=== PATIENT | male | born 1955 | race Caucasian/White ===

== ENCOUNTER 2024-06-23 14:27 | Inpatient (IN) | payer OTHER ==
[~2024-06-23] VITALS: Ht 193 cm; Wt 133.0 kg
[~2024-06-23 14:27] MED LIST: BENAML10/40 PO; HYDACE5 PO; IRBHYD150 PO; NAPR500 PO
[2024-06-23 14:59] LABS: Hematocrit 20.7 % (37.0-53.0); Hemoglobin 7.6 g/dL (13.5-17.5); Mean Corpuscular HGB 39.4 pg (26.0-34.0); Mean Corpuscular HGB Conc 36.7 g/dL (31.5-36.5); Mean Corpuscular Volume 107 fL (80-100); RDW Coefficient Variation 13.1 % (11.7-14.2); RDW Standard Deviation 50.1 fL (35.1-46.3); Red Blood Cell Count 1.93 M/mm3 (4.30-5.90)
[2024-06-23 15:15] LABS: BASOPHILS PERCENT AUTO 0 % (0-2); EOSINOPHILS ABSOLUTE AUTO 0.01 K/mm3 (0.00-0.68); EOSINOPHILS PERCENT AUTO 1 % (0-6); IMMATURE GRAN ABSOLUTE AUTO 0.02 K/mm3 (0.00-0.10); IMMATURE GRAN PERCENT AUTO 2 % (0-1); LYMPHOCYTES ABSOLUTE AUTO 0.66 K/mm3 (0.84-5.20); LYMPHOCYTES PERCENT AUTO 66 % (21-46); MONOCYTES ABSOLUTE AUTO 0.11 K/mm3 (0.16-1.47); MONOCYTES PERCENT AUTO 11 % (4-13); NEUTROPHILS PERCENT AUTO 20 % (41-73)
[2024-06-23] MEDS ORDERED: NS 1,000 ML IV SCH ×3 (15:15→21:10)
[2024-06-23] MEDS ORDERED: Cefepime HCl 2,000 MG in NS 100 ML IV ONE (15:25)
[2024-06-23 15:32] LABS: Mean Platelet Volume 9.8 fL (9.1-12.4); Platelet Count 62 K/mm3 (150-400)
[2024-06-23 15:36] LABS: Albumin, Blood 2.9 g/dL (3.4-5.0); Albumin/Globulin Ratio 0.8 (0.8-1.8); Bun/Creatinine Ratio 21.3 (12.0-20.0); Calcium, Blood 8.9 mg/dL (8.5-10.1); Creatinine, Blood 1.64 mg/dL (0.60-1.20); Globulin, Blood 3.8 g/dL (2.2-4.0); Potassium, Blood 3.3 mmol/L (3.5-5.5); Total Protein, Blood 6.7 g/dL (6.4-8.2)
[2024-06-23 16:22] LABS: Influenza A, PCR NEGATIVE (NEGATIVE); Influenza B, PCR NEGATIVE (NEGATIVE); Resp Syncytial Virus, PCR NEGATIVE (NEGATIVE); SARS-Cov-2 (COVID-19) PCR, MMC NEGATIVE (NEGATIVE)
[2024-06-23] MEDS ORDERED: Acetaminophen 500 MG Tab PO ONE (16:25)
[2024-06-23] MEDS ORDERED: Ondansetron HCl 2 MG / ML 2ML Vial IV PRN (21:10)
[2024-06-23 21:32] LABS: Source, Urine Clean Catch
[2024-06-23] MEDS ORDERED: Azithromycin 500 MG in NS 250 ML IV SCH (21:36)
[2024-06-23 21:38] LABS: Bilirubin, Urine Neg (Neg); Blood, Urine 1+ (Neg); Glucose Qualitative, Urine Neg (Neg); Ketones, Urine Neg (Neg); Leukocyte Esterase, Urine Neg (Neg); Nitrite, Urine Neg (Neg); Protein, Urine 2+ (Neg); Urobilinogen, Urine 1+ (Normal)
[2024-06-23] MEDS ORDERED: EPINEPhrine HCl 0.1 MG/ML STE Water 10ML SYR XX ONE (21:47)
[2024-06-23] MEDS ORDERED: Lidocaine HCl 2% 20 MG/ML 5ML SYR IV ONE (21:47)
[2024-06-23] MEDS ORDERED: Sodium Bicarb 8.4% 1 MEQ/ML 50 ML Vial IV ONE (21:47)
[2024-06-23] MEDS ORDERED: Calcium Chloride 10% 10 ML SYR IV ONE (21:47)
[2024-06-23] MEDS ORDERED: Amiodarone HCl 50 MG / ML 3 ML Amp IV ONE (21:47)
[2024-06-23] MEDS ORDERED: Magnesium Sulfate 500 MG / ML 2ML Vial XX ONE (21:47)
[2024-06-23 21:52] LABS: Appearance, Urine Hazy (Clear); Color, Urine Yellow (P-Yellow)
[2024-06-23 21:53] LABS: Amorphous Light (0-Heavy); Bacteria Few /hpf; Red Blood Cells, Urine 0-2 /hpf (0-2); Squamous Epithelial Cells Mod /hpf (Few); White Blood Cells, Urine 0-2 /hpf (0-5)
[2024-06-23 21:54] LABS: Granular Casts 0-2 /lpf (0); Hyaline Casts 0-2 /lpf (0-2)
[2024-06-23] MEDS ORDERED: Potassium Chloride 20 MEQ TabCR PO ONE (22:00)
[2024-06-23] MEDS ORDERED: LORazepam 2 MG/ML 1ML Injection IV ONE (22:28)
[2024-06-23] MEDS ORDERED: Propofol 10mg/ml 20 ml Vial (Procedural) IV ONE (22:28)
[2024-06-24] VITALS (34 sets, daily range): BP systolic 66–137; BP diastolic 44–74
[2024-06-24] MEDS ORDERED: Cefepime HCl 2,000 MG in NS 100 ML IV SCH
[2024-06-24] MEDS ORDERED: DOXA4 PO (02:05)
[2024-06-24] MEDS ORDERED: HYDCHL50 PO (02:06)
[2024-06-24] MEDS ORDERED: AMLO10 PO (02:10)
[2024-06-24] MEDS ORDERED: BENAZEPRIL HCL40 M1 PO (02:11)
[2024-06-24] MEDS ORDERED: VERAPAMIL ER120 M1 PO (03:29)
[2024-06-24] MEDS ORDERED: Acetaminophen 325 MG TABLET PO PRN (03:50)
--- NOTE | 2024-06-24 03:50 | NUR ---
DURING AM VS PT HAD ORAL TEMP OF 101.3F, HOSPITALIST NOTIFIED AND ORDER FOR TYLENOL 650MG Q6H PRN OBTAINED.
[2024-06-24] MEDS ORDERED: LIDO5TO TOP (04:11)
[2024-06-24] MEDS ORDERED: Viagra100 MG PO (04:12)
[2024-06-24] MEDS ORDERED: Acetaminophen 500 MG Tab PO ONE (05:55)
[2024-06-24 08:32] LABS: Hematocrit 18.3 % (37.0-53.0); Hemoglobin 6.6 g/dL (13.5-17.5); Mean Corpuscular HGB 39.3 pg (26.0-34.0); Mean Corpuscular HGB Conc 36.1 g/dL (31.5-36.5); Mean Corpuscular Volume 109 fL (80-100); Mean Platelet Volume 9.6 fL (9.1-12.4); RDW Coefficient Variation 13.3 % (11.7-14.2); RDW Standard Deviation 52.6 fL (35.1-46.3); Red Blood Cell Count 1.68 M/mm3 (4.30-5.90); White Blood Cell Count 1.35 K/mm3 (4.00-11.30)
[2024-06-24 08:34] LABS: Platelet Count 50 K/mm3 (150-400)
[2024-06-24] MEDS ORDERED: Enoxaparin 40 MG/0.4 ML SYR SC SCH (09:00)
[2024-06-24 09:21] LABS: BAND PERCENT MAN 2 % (0-8); BASOPHILS PERCENT MAN 0 % (0-2); EOSINOPHILS PERCENT MAN 0 % (0-6); LYMPHOCYTES ABSOLUTE MAN 0.91 K/mm3 (0.84-5.20); LYMPHOCYTES PERCENT MAN 68 % (21-46); MONOCYTES ABSOLUTE MAN 0.05 K/mm3 (0.16-1.47); MONOCYTES PERCENT MAN 4 % (4-13); NEUTROPHILS ABSOLUTE MAN 0.29 K/mm3 (1.96-9.15); OTHER CELL PERCENT MAN 2 % (0-0); PROMYELOCYTE ABSOLUTE MAN 0.05 K/mm3 (0.00-0.00); PROMYELOCYTE PERCENT MAN 4 % (0-0); SEG NEUTROPHILS PERCENT MAN 20 % (41-73); TOTAL CELLS COUNTED 50
[2024-06-24] MEDS ORDERED: Folic Acid 1 MG in NS 50 ML IV SCH (10:32)
[2024-06-24] MEDS ORDERED: NS 1,000 ML BAG IR SCH (11:00)
[2024-06-24] MEDS ORDERED: NS 500 ML IV SCH (11:15)
--- NOTE | 2024-06-24 16:16 | NUR ---
Upon receiving a referral for spiritual care, I visited the patient. He is lying in bed and alert. He tells me about the events that led to his admission to the hospital. He tells me that the initial trauma of the event caused him to lose hope for a bit but that he was feeling much more positive today. We talked about the people an resources that help stabilize him and about the great clinical staff that have supported him through the challenges of this medical issue. I provided therapeutic listening, anxiety containment, and a calming presence. Patient responded well and showed signs of reduced stress. I will continue to remain available to patient and family.
--- NOTE | 2024-06-24 16:21 | NUR ---
PT GOT I UNIT OF PRBC. WAITING ON RESULTS FROM LAB TO SEE NEW HGB. PT HAD NO C/O PIN, SOB. GETS AROUND WITH STBYA/GB/W. PT HAS NO QUESTIONS OR COCNERNS AT THIS TIME
[2024-06-24 16:53] LABS: Adenovirus F 40/41 Not Detected (NOT DETECT); Astrovirus Not Detected (NOT DETECT); Campylobacter Sp Not Detected (NOT DETECT); Cryptosporidium Not Detected (NOT DETECT); Cyclospora Cayetanensis Not Detected (NOT DETECT); E. Coli O157 Not Detected (NOT DETECT); Entamoeba Histolytica Not Detected (NOT DETECT); Enteroaggregative E. coli-EAEC Not Detected (NOT DETECT); Enteropathogenic E. coli-EPEC Not Detected (NOT DETECT); Enterotoxigenic E. coli-ETEC Not Detected (NOT DETECT); Giardia Lamblia Not Detected (NOT DETECT); Norovirus GI/GII Not Detected (NOT DETECT); Plesiomonas Shigelloides Not Detected (NOT DETECT); Rotavirus A Not Detected (NOT DETECT); Salmonella Sp Not Detected (NOT DETECT); Sapovirus Not Detected (NOT DETECT); Shiga Toxin-prod E. coli-STEC Not Detected (NOT DETECT); Shigella/Enteroin E. coli-EIEC Not Detected (NOT DETECT); Vibrio Cholerae Not Detected (NOT DETECT); Vibrio Sp Not Detected (NOT DETECT); Yersinia Enterocolitica Not Detected (NOT DETECT)
[2024-06-24 17:04] LABS: Base Excess Venous -7.1 mmol/L; PCO2 Venous 46.7 mmHg (38-42); pH Blood Venous 7.24 (7.34-7.37)
[2024-06-24] MEDS ORDERED: propofoL 100 ML IV ONE (17:21)
[2024-06-24] MEDS ORDERED: Cetylpyridinium Chloride 1 EA MISC MT SCH (17:35)
[2024-06-24] MEDS ORDERED: propofoL 100 ML IV SCH (17:35)
[2024-06-24 17:41] LABS: Hematocrit 21.6 % (37.0-53.0); Hemoglobin 7.5 g/dL (13.5-17.5); Mean Corpuscular HGB 38.3 pg (26.0-34.0); Mean Corpuscular HGB Conc 34.7 g/dL (31.5-36.5); Mean Corpuscular Volume 110 fL (80-100); Mean Platelet Volume 10.6 fL (9.1-12.4); NRBC ABSOLUTE 0.09 K/mm3 (0.00-0.02); NRBC Auto 1.3 /100 WBC (0.0-0.2); Platelet Count 51 K/mm3 (150-400); RDW Coefficient Variation 14.7 % (11.7-14.2); RDW Standard Deviation 58.7 fL (35.1-46.3); Red Blood Cell Count 1.96 M/mm3 (4.30-5.90); White Blood Cell Count 6.77 K/mm3 (4.00-11.30)
[2024-06-24] MEDS ORDERED: Lactated Ringer's 1,000 ML IV ONE ×3 (17:50→21:20)
[2024-06-24 17:55] LABS: Albumin, Blood 2.3 g/dL (3.4-5.0); Albumin/Globulin Ratio 0.7 (0.8-1.8); Bilirubin, Total 0.8 mg/dL (0.1-1.0); Bun/Creatinine Ratio 22.4 (12.0-20.0); Calcium, Blood 9.8 mg/dL (8.5-10.1); Creatinine, Blood 1.52 mg/dL (0.60-1.20); Globulin, Blood 3.3 g/dL (2.2-4.0); Magnesium, Blood 3.5 mg/dL (1.6-2.4); Phosphorus, Blood 3.6 mg/dL (2.5-4.9); Potassium, Blood 3.5 mmol/L (3.5-5.5); Total Protein, Blood 5.6 g/dL (6.4-8.2)
--- NOTE | 2024-06-24 17:57 | NUR ---
SHIFT SUMMARY NOC PT A/O X 4. PLEASANT AND COOPERATIVE WITH CARE. VSS. ADMIT FROM ED WITH SYNCOPE, PT HAD [facility]DE [facility] AND WAS UNRESPONSIVE FOR 2 MINUTES. PT UNDERGOING LABS FOR PANACYTOPENIA. PT ON NEUTROPENIC PRECAUTIONS WBC 1.0. HAS HX OF COLON CANCER WITH COLON RESECTION IN 2022. PT ASLO REPORT FEELING FATIGUED SINCE DECEMBER 2023, AND PCP TELLING PT THAT THEY MAY HAVE HAD [facility]. PT ON TELE SINUS TACH IN 'S. PT REPORTS CONTINENCE BASELINE, BUT HAS HAD MULTIPLE INC BM AND URINE SINCE IN HOSPITAL. PT HAS HOME CPAP IN ROOM RT SETUP FOR SLEEPING. PT RECEIVING IV ABX AND HAS NS INFUSING @ 100 ML/HR. PT SPIKED TEMP 101.3F AND GIVEN TYLENOL PT CURRENTLY RESTING WITH BED IN LOWEST POSITION, AND CALL LIGHT WITHIN REACH.
[2024-06-24 18:04] LABS: International Normalized Ratio 1.58; Prothrombin Time Results 16.3 Sec (9.7-11.5)
--- NOTE | 2024-06-24 18:06 | NUR ---
THIS NURSE CAME BACK FROM BREAK AND WAS TOLD THE PT IS EXPERIENCING CHEST PAIN. THIS NURSE GOT EKG AND VITALS CART TO THE CNAS SO THIS NURSE COULD INFORM MD ARSHAD. MID PHONE CALL RESIDENTIAL SUPPORT WORKER CALLED OUT FOR ME TO COME IN. PT WAS UNRESPONSIVE AND BLUE, THIS NURSE CALLED GEORGE PÉREZ AND BEGAN CHEST COMPRESSIONS. GEORGE PÉREZ TEAM CAME FOR ASSISTANCE AND RESUMED CODE. PT ENDED UP TRANSFERRING TO ICU. THIS NURSE GAVE REPORT TO KASSANDRA WHO WILL RESUME CARE FOR PT IN ICU
[2024-06-24] MEDS ORDERED: Lidocaine 2000 MG Premix 250 ML IV SCH (18:10)
--- NOTE | 2024-06-24 19:03 | NUR ---
START OF CARE THIS NURSE ASSUMED CARE AT APPROXIMATELY 1715. THIS NURSE ATTENDED CODE BLUE, SEE CODE SHEET FOR MORE INFORMATION. PT BROUGHT DOWN TO ICU. MD PISANO AT BEDSIDE WITH CNC. PT INTUBATED PRIOR TO TRANSFER. PLACED R GROIN CENTRAL LINE. PT HAS PROPOFOL, LEVO, AMIO, INFUSING. PT RECEIVED 1L BOLUS OF LR D/T HYPOTENSION WITH MAP DOWN TO 51. PT WENT BACK INTO SUSTAINED VTACH AND RECEIVED A SHOCK AND WAS CONVERTED BACK INTO SVT IN 130'S. PT RECEIVED AN ADDITIONAL 2G OF MAGNESIUM AND 100MG OF LIDOCAINE. 20G IV PLACED IN R FOREARM. PT WENT INTO VTACH AGAIN AND RECIVED A SECOND SHOCK AND WAS PLACED BACK INTO SVT. PT FAMILY UPDATED AT BEDSIDE WITH . PT HR 110-130'S SPO2 95-100% WITH BP MAP RISING WITH LEVOPHED CURRENTLY 85/55 WITH A MAP OF 65. PT WAS REACHING FOR THE ETT WHILE TRANSPORTING TO ICU. PT UNABLE TO FOLLOW DIRECT COMMANDS BUT TRACKED AND LOCALIZED. REPORT WAS GIVEN TO ONCOMING NURSE.
--- NOTE | 2024-06-24 20:00 | NUR ---
ASSUMPTION OF CARE/ASSESSMENT: ASSUMED CARE OF PT AT 1900; BEDSIDE SHIFT REPORT RECIEVED FROM NAKIA WELLS. PT POST CARDIAC ARREST, CURRENTLY INTUBATED AND SEDATED. VENT SETTINGS ARE AC/VC 14/500/5/100, PT SEDATED WITH PROPOFOL @ 40 MCG. PT ABLE TO RESPOND TO VERBAL STIMULI BY OPENNING EYES, NODDING HEAD YES/NON AND SQUEEZES HANDS ON COMMAND. PT ST ON MONITOR WITH FREQUENT RUNS OF V-TACH. PT SBP 80'S WITH MAP 60<; LEVO @ 12 MCG. TOLEDO PATENT AND DRAINING TO GRAVITY WITH NO OUTPUT NOTED. PGT IN PLACE AND ON LIS. BSWR IN PLACE. R. FEM CENTRAL LINE IN PLACE AND PATENT. PT'S FAMILY AY BEDSIDE AND UPDATED ON CARE PLAN. PADS AND ZOLL AT BEDSIDE. PLAN TO MOVE PT TO ROOM 13 SHORTLY.
[2024-06-24 20:05] LABS: BASOPHILS PERCENT MAN 0 % (0-2); BLASTS PERCENT MAN 2 % (0-0); EOSINOPHILS ABSOLUTE MAN 0.06 K/mm3 (0.00-0.68); EOSINOPHILS PERCENT MAN 1 % (0-6); LYMPHOCYTES % ATYPICAL MANUAL 1 % (0-0); LYMPHOCYTES ABSOLUTE MAN 6.16 K/mm3 (0.84-5.20); LYMPHOCYTES PERCENT MAN 90 % (21-46); MONOCYTES ABSOLUTE MAN 0.06 K/mm3 (0.16-1.47); MONOCYTES PERCENT MAN 1 % (4-13); MYELOCYTE ABSOLUTE MAN 0.13 K/mm3 (0.00-0.00); MYELOCYTE PERCENT MAN 2 % (0-0); SEG NEUTROPHILS PERCENT MAN 3 % (41-73); TOTAL CELLS COUNTED 100
[2024-06-24] MEDS ORDERED: Lactobacil 2-S.Thermo-Bifido 1 1 Cap PO SCH (21:00)
--- NOTE | 2024-06-24 21:30 | NUR ---
PT UPDATE: CALLED DR. PISANO REGARDING HGB OFG 7.5 WITH RECOMMENDATIONS FROM ONCOLOGY TO MAINTAIN HGB 8<, IN ADDITION TO PERSISTANT HYPOTENSION WITH MAPS 61-62 WITH LEVO @ 22 MCG. ORDERS RECIEVED FOR 1 L LR BOLUS AND TO RESTART MAINTANCE FLUIDS.
[2024-06-24] MEDS ORDERED: Acetaminophen 160MG / 5ML 10.15 UDC PT PRN (22:25)
[2024-06-24] MEDS ORDERED: Vasopressin 20 UNITS in NS 100 ML IV SCH (22:25)
--- NOTE | 2024-06-24 22:25 | NUR ---
UPDATE: HYPOTENSION CONTINUE WITH MAP'S 58-60; GOSMAN NOTIFIED AND ORDERS FOR VASO RECIEVED. RUNS OF V-TACH HAVE SLOWED DOWN. PT CONTINUES WITH SR WITH RATE 80'S.
[2024-06-25] VITALS: BP 76/58
[2024-06-25] MEDS ORDERED: Hydrogen Peroxide 1.5 % Solution MT SCH
[2024-06-25 00:15] VITALS: BP 74/56
[2024-06-25 00:30] VITALS: BP 74/58
--- NOTE | 2024-06-25 00:45 | NUR ---
UPDATE: PT MAP DROPPED TO 54, SBP 60'S. DR PISANO UPDATED, ORDERS FOR LILLIAN AND EPI RECIEVED. OTHER VITAL SIGNS STABLE AT THIS TIME.
[2024-06-25] MEDS ORDERED: Phenylephrine HCl in 0.9% NaCl 250 ML IV SCH (00:55)
[2024-06-25 01:00] VITALS: BP 50/39
--- NOTE | 2024-06-25 01:36 | NUR ---
OF NOTE: PT'S HEART RATE BEGINS TO [place] DOWN AND HAD PEA AT 0103. ASYSTOLE WITHOUT PULSE OR AUSCULTATED HEART BEAT AT 0104 TIME OF . VARIFIED WITH RUSSELL ELDRIDGE AND THIS RN. PRIMARY RN MADE AWARE IN WHICH SHE CALLED FAMILY.
--- NOTE | 2024-06-25 01:57 | NUR ---
UPDATE- CARDIAC : ON MONITOR IT WAS OBSERVED PT BRADYCARDIC DOWN TO THE 30'S AND THEN INTO PEA. OFFICE MACHINE INSTALLER AND BREAK RN AT BEDSIDE, THIS RN CALLED PT'S DAUGHTER JACQUES WHO HAD JUST STEPPED OUT OF ROOM. NOTFIED FAMILY OF CARDIAC .
[2024-06-25] MEDS ORDERED: Pantoprazole Sodium 40 MG Injection IV SCH (09:00)
== END 2024-06-25 01:04 | DRG 834 ==
LOC: ER 14:27 → MEDS 14:28 → ERHOLD 14:28 → MEDS 06-24 00:30 → ICUE 06-24 15:09
PROVIDERS: Emergency Medicine; Internal Medicine; Internal Medicine Critical Care Medicine; Student in an Organized Health Care Education/Training Program; ADMIT Student in an Organized Health Care Education/Training Program
PROC: 8E0ZXY6 Isolation (ICD-10-PCS; 2024-06-23)
PROC: 5A1935Z Respiratory Ventilation, Less than 24 Consecutive Hours (ICD-10-PCS; principal; 2024-06-24)
PROC: 30233N1 Transfusion of Nonautologous Red Blood Cells into Peripheral Vein, Percutaneous Approach (ICD-10-PCS; 2024-06-24)
PROC: 0BH17EZ Insertion of Endotracheal Airway into Trachea, Via Natural or Artificial Opening (ICD-10-PCS; 2024-06-24)
PROC: 5A09357 Assistance with Respiratory Ventilation, Less than 24 Consecutive Hours, Continuous Positive Airway Pressure (ICD-10-PCS; 2024-06-24)
PROC: 0DH67UZ Insertion of Feeding Device into Stomach, Via Natural or Artificial Opening (ICD-10-PCS; 2024-06-24)
PROC: 3E043XZ Introduction of Vasopressor into Central Vein, Percutaneous Approach (ICD-10-PCS; 2024-06-24)
PROC: 3E033XZ Introduction of Vasopressor into Peripheral Vein, Percutaneous Approach (ICD-10-PCS; 2024-06-24)
PROC: 06HY33Z Insertion of Infusion Device into Lower Vein, Percutaneous Approach (ICD-10-PCS; 2024-06-24)
PROC: 3E03329 Introduction of Other Anti-infective into Peripheral Vein, Percutaneous Approach (ICD-10-PCS; 2024-06-24)
DX: C92.40 Acute promyelocytic leukemia, not having achieved remission (principal); D61.810 Antineoplastic chemotherapy induced pancytopenia; I21.09 ST elevation (STEMI) myocardial infarction involving other coronary artery of anterior wall; J96.01 Acute respiratory failure with hypoxia; I49.01 Ventricular fibrillation; D70.9 Neutropenia, unspecified; R50.81 Fever presenting with conditions classified elsewhere; N18.30 Chronic kidney disease, stage 3 unspecified; I12.9 Hypertensive chronic kidney disease with stage 1 through stage 4 chronic kidney disease, or unspecified chronic kidney disease; E66.01 Morbid (severe) obesity due to excess calories; I95.9 Hypotension, unspecified; G47.33 Obstructive sleep apnea (adult) (pediatric); Z85.038 Personal history of other malignant neoplasm of large intestine; I48.91 Unspecified atrial fibrillation; K76.0 Fatty (change of) liver, not elsewhere classified; Z90.49 Acquired absence of other specified parts of digestive tract; Z87.891 Personal history of nicotine dependence; Z79.899 Other long term (current) drug therapy; Z68.37 Body mass index [BMI] 37.0-37.9, adult; Z66 Do not resuscitate; Z51.5 Encounter for palliative care; Z78.1 Physical restraint status
CPT/HCPCS: 0241U; 31500; 36415; 36556; 51701; 51702; 51798; 71045; 74181; 80053; 81001; 82330; 82435; 82607; 82746; 82803; 83605; 83735; 84100; 84132; 84145; 84295; 84484; 85025; 85610; 85730; 86850; 86900; 86901; 86923; 87086; 87507; 93005; 93010; 93308; 93321; 94002; 94762; 96361; 96365; 96367; 99285-25; A9270; C1751; G0378; J0171; J0282; J0456; J0692; J2003; J2060; J2704; J3475; J7030; J7050; J7060; J7120; P9016